=== PATIENT | female | born 1990 | race African-American/Black ===

== ENCOUNTER 2019-07-22 16:31 | Emergency (ER) | payer SELFPAY ==
[~2019-07-22] VITALS: Ht 167.6 cm; Wt 100.0 kg
[~2019-07-22 16:31] MED LIST: NO MEDS
[2019-07-22 18:10] VITALS: BP 118/77
== END 2019-07-22 18:14 | disposition home or self-care (01) ==
LOC: EMS 16:33
DX: S83.8X2A Sprain of other specified parts of left knee, initial encounter (principal); X50.1XXA Overexertion from prolonged static or awkward postures, initial encounter; Y93.89 Activity, other specified; Y92.89 Other specified places as the place of occurrence of the external cause; Y99.8 Other external cause status